=== PATIENT | male | born 1960 | race Caucasian/White ===

== ENCOUNTER 2019-09-11 12:52 | Emergency (ER) | payer MEDICAID ==
[~2019-09-11] VITALS: Ht 177.8 cm; Wt 131.8 kg
[~2019-09-11 12:52] MED LIST: HYDR25TA4 PO; LISI-600 PO; SIMV20TA5 PO
[2019-09-11 13:16] LABS: BASOPHILS # (AUTO) 0.1 X10'3 (0-0.2); BASOPHILS % (AUTO) 0.6 % (0-1); EOSINOPHILS # (AUTO) 0.3 X10'3 (0-0.9); EOSINOPHILS % (AUTO) 2.3 % (0-6); HEMATOCRIT 35.4 % (42.0-52.0); HEMOGLOBIN 11.7 g/dl (14.0-17.9); LYMPHOCYTES # (AUTO) 1.1 X10'3 (1.1-4.8); LYMPHOCYTES % (AUTO) 9.7 % (21-51); MEAN CORPUSCULAR HEMOGLOBIN 29.2 PG (27.0-31.0); MEAN CORPUSCULAR VOLUME 88.4 FL (78-98); MEAN PLATELET VOLUME 7.5 FL (7.4-10.4); MONOCYTES # (AUTO) 0.8 X10'3 (0-0.9); MONOCYTES % (AUTO) 6.9 % (2-12); NEUTROPHILS # (AUTO) 9.4 X10'3 (1.8-7.7); NEUTROPHILS % (AUTO) 80.5 % (42-75); PLATELET COUNT 233 X10'3 (140-440); RED BLOOD COUNT 4.01 X10'6 (4.70-6.10); RED CELL DISTRIBUTION WIDTH 15.2 % (11.5-14.5); WHITE BLOOD COUNT 11.7 X10'3 (4.5-11.0)
[2019-09-11 13:34] LABS: PARTIAL THROMBOPLASTIN TIME 27 SECONDS (22-32)
[2019-09-11 13:35] LABS: ALANINE AMINOTRANSFERASE 50 U/L (12-78); ALBUMIN 3.1 G/DL (3.4-5.0); ALBUMIN/GLOBULIN RATIO 0.8 (1.1-1.5); ALKALINE PHOSPHATASE 98 IU/L (46-116); ANION GAP 9 (8-16); ASPARTATE AMINO TRANSFERASE 25 U/L (10-37); BILIRUBIN,TOTAL 0.3 MG/DL (0.1-1.0); BLOOD UREA NITROGEN 12 MG/DL (7-18); BUN/CREATININE RATIO 11.9 (5.4-32.0); CALCIUM 7.9 MG/DL (8.5-10.1); CHLORIDE 108 MMOL/L (99-107); CREATININE 1.01 MG/DL (0.60-1.10); GLUCOSE 144 MG/DL (70-104); POTASSIUM 4.1 MMOL/L (3.5-5.1); SODIUM 142 MMOL/L (135-145); TOTAL CARBON DIOXIDE 24.9 MMOL/L (24-32); TOTAL PROTEIN 6.8 G/DL (6.4-8.2); eGFR 76 ML/MIN
[2019-09-11 14:24] LABS: CLARITY,URINE CLEAR (Clear); COLOR,URINE YELLOW (Yellow); GLUCOSE, URINE NEGATIVE (Neg); KETONES,URINE NEGATIVE (Neg); LEUKOCYTE ESTERASE ,URINE NEGATIVE (Neg); NITRITES, URINE NEGATIVE (Neg); OCCULT BLOOD,URINE TRACE-INTACT (Neg); PROTEIN,URINE NEGATIVE (Neg); UROBILINOGEN,URINE 0.2 E.U/dL (0.2-1.0)
[2019-09-11 14:26] LABS: UA COLLECTION TYPE CLN CATCH MIDSTREAM
[2019-09-11 14:34] LABS: URINE AMPHETAMINE SCREEN NEGATIVE (Neg); URINE BARBITUATE SCREEN NEGATIVE (Neg); URINE BENZODIAZEPINES SCREEN NEGATIVE (Neg); URINE CANNABINOID SCREEN NEGATIVE (Neg); URINE COCAINE SCREEN NEGATIVE (Neg); URINE METHADONE SCREEN NEGATIVE (Neg); URINE OPIATE SCREEN NEGATIVE (Neg); URINE PHENCYCLIDINE SCREEN NEGATIVE (Neg)
[2019-09-11 14:35] LABS: BACTERIA,URINE NONE SEEN /HPF (Neg); MUCUS STRANDS NONE SEEN /LPF (Neg); RBC,URINE 0-2 /HPF (0-2); SQUAMOUS EPITHELIAL CELL,UR FEW /LPF (FEW); WBC,URINE 0-4 /HPF (0-4)
[2019-09-11] MEDS ORDERED: iohexol 350MG/ML 100ml bottle IV ONE (14:37)
[2019-09-11] MEDS ORDERED: furosemide 10 MG/1 ML 10ml inj IV ONE (16:55)
[2019-09-11] MEDS ORDERED: FURO40TA4 PO (16:55)
[2019-09-11] MEDS ORDERED: ketorolac trometh. 30mg/ml inj. IV ONE (16:55)
--- NOTE | 2019-09-11 17:08 | NUR ---
patient received back in hallway 7.
[2019-09-11 17:31] VITALS: BP 189/96
== END 2019-09-11 17:33 | disposition home or self-care (01) ==
LOC: ER 12:53
DX: R60.0 Localized edema (principal); R06.02 Shortness of breath; E78.00 Pure hypercholesterolemia, unspecified; I10 Essential (primary) hypertension; Z56.0 Unemployment, unspecified; Z79.899 Other long term (current) drug therapy
CPT/HCPCS: 36415; 71045; 71275; 80053; 80305; 81001; 83880; 84484; 85025; 85610; 85730; 93005; 96374; 96375; 99284; J1885; J1940; Q9967

== ENCOUNTER 2019-12-17 16:20 | Inpatient (IN) | payer MEDICAID ==
[~2019-12-17] VITALS: Ht 176.5 cm; Wt 104.1 kg
[~2019-12-17 16:20] MED LIST changes: +FURO40TA4 PO; +SIMV-42 PO; -SIMV20TA5 PO
[2019-12-17 18:18] LABS: BASOPHILS # (AUTO) 0.1 X10'3 (0-0.2); EOSINOPHILS # (AUTO) 0.1 X10'3 (0-0.9); EOSINOPHILS % (AUTO) 1.5 % (0-6); HEMATOCRIT 39.6 % (42.0-52.0); HEMOGLOBIN 13.3 g/dl (14.0-17.9); LYMPHOCYTES # (AUTO) 1.7 X10'3 (1.1-4.8); LYMPHOCYTES % (AUTO) 16.4 % (21-51); MEAN CORPUSCULAR HEMOGLOBIN 28.8 PG (27.0-31.0); MEAN CORPUSCULAR HGB CONC 33.6 g/dL (33.0-36.5); MEAN CORPUSCULAR VOLUME 85.6 FL (78-98); MEAN PLATELET VOLUME 8.5 FL (7.4-10.4); MONOCYTES # (AUTO) 0.8 X10'3 (0-0.9); MONOCYTES % (AUTO) 8.1 % (2-12); NEUTROPHILS # (AUTO) 7.4 X10'3 (1.8-7.7); PLATELET COUNT 227 X10'3 (140-440); RED BLOOD COUNT 4.62 X10'6 (4.70-6.10); RED CELL DISTRIBUTION WIDTH 14.3 % (11.5-14.5); WHITE BLOOD COUNT 10.2 X10'3 (4.5-11.0)
[2019-12-17 18:34] LABS: ALANINE AMINOTRANSFERASE 28 U/L (12-78); ALBUMIN 3.8 G/DL (3.4-5.0); ALBUMIN/GLOBULIN RATIO 1.2 (1.1-1.5); ALKALINE PHOSPHATASE 94 IU/L (46-116); ANION GAP 9 (8-16); ASPARTATE AMINO TRANSFERASE 18 U/L (10-37); BILIRUBIN,TOTAL 0.3 MG/DL (0.1-1.0); BLOOD UREA NITROGEN 32 MG/DL (7-18); BUN/CREATININE RATIO 28.6 (5.4-32.0); CALCIUM 8.8 MG/DL (8.5-10.1); CHLORIDE 104 MMOL/L (99-107); CREATININE 1.12 MG/DL (0.60-1.10); GLUCOSE 95 MG/DL (70-104); POTASSIUM 4.6 MMOL/L (3.5-5.1); SODIUM 140 MMOL/L (135-145); TOTAL CARBON DIOXIDE 27.4 MMOL/L (24-32); TOTAL PROTEIN 7.1 G/DL (6.4-8.2); eGFR 67 ML/MIN
--- NOTE | 2019-12-17 19:25 | NUR ---
Spoke with Dr. Yi about the patient not having been seen and heart rate continues to be elevated.
--- NOTE | 2019-12-17 20:02 | NUR ---
Dr. Berrios is with the patient at this time.
[2019-12-17] MEDS ORDERED: diltiazem 30mg tablet PO ONE (20:10)
[2019-12-17] MEDS ORDERED: enoxaparin 100mg/ml syringe SUBCUT ONE ×2 (20:10→21:30)
[2019-12-17] MEDS ORDERED: diltiazem 5mg/ml 5ml inj. IV ONE (20:10)
[2019-12-17 20:45] LABS: PARTIAL THROMBOPLASTIN TIME 29 SECONDS (22-32)
[2019-12-17] MEDS ORDERED: normal saline 1000ML IV soln IVB ONE (20:45)
--- NOTE | 2019-12-17 21:39 | NUR ---
Lovenox injection given, Pharmacy number unable to be scanned.
[2019-12-17] MEDS ORDERED: magnesium 4gm in 100ml NS 100 ML IV PRN (22:40)
[2019-12-17] MEDS ORDERED: ondansetron/PF 4mg/2ml inj IV PRN (22:40)
[2019-12-17] MEDS ORDERED: magnesium hydroxide 30ml (MOM) UD suspension PO PRN (22:40)
[2019-12-17] MEDS ORDERED: mag hydrox/Alum hydrox/simeth 30ml oral suspension PO PRN (22:40)
[2019-12-17] MEDS ORDERED: magnesium Cl slow-release 64mg tablet PO PRN (22:40)
[2019-12-17] MEDS ORDERED: potassium CL 10mEq/100ml bag 100 ML IV PRN ×2 (22:40)
[2019-12-17] MEDS ORDERED: magnesium 2GM in 50ml NS 50 ML IV PRN (22:40)
[2019-12-17] MEDS ORDERED: acetaminophen 325mg tablet PO PRN (22:40)
[2019-12-17] MEDS ORDERED: potassium Cl 20 mEq SR tablet PO PRN ×2 (22:40)
[2019-12-17] MEDS ORDERED: diltiazem-NS 100mg/100ml 100 ML IV SCH (22:45)
--- NOTE | 2019-12-17 23:37 | NUR ---
Pt's cardizem drip held for the time being due to low blood pressure. BP 84/48 with Heart rate 87, afib. Dr. Joshua notified.
[2019-12-18] VITALS (7 sets, daily range): BP systolic 89–116; BP diastolic 55–77
--- NOTE | 2019-12-18 | NUR ---
Patient in room MED 315. I have received report from SANDRO GIBBONS and had the opportunity to ask questions and assume patient care.
[2019-12-18] MEDS ORDERED: digoxin 250mcg/ml 2ml ampule IV ONE ×3 (01:25→12:45)
[2019-12-18 06:08] LABS: BASOPHILS # (AUTO) 0.1 X10'3 (0-0.2); EOSINOPHILS # (AUTO) 0.2 X10'3 (0-0.9); EOSINOPHILS % (AUTO) 2.6 % (0-6); HEMATOCRIT 37.5 % (42.0-52.0); HEMOGLOBIN 12.8 g/dl (14.0-17.9); LYMPHOCYTES # (AUTO) 2.3 X10'3 (1.1-4.8); MEAN CORPUSCULAR HEMOGLOBIN 28.8 PG (27.0-31.0); MEAN CORPUSCULAR VOLUME 84.6 FL (78-98); MEAN PLATELET VOLUME 8.3 FL (7.4-10.4); MONOCYTES # (AUTO) 0.8 X10'3 (0-0.9); NEUTROPHILS # (AUTO) 4.3 X10'3 (1.8-7.7); NEUTROPHILS % (AUTO) 56.4 % (42-75); PLATELET COUNT 222 X10'3 (140-440); RED BLOOD COUNT 4.44 X10'6 (4.70-6.10); RED CELL DISTRIBUTION WIDTH 14.1 % (11.5-14.5); WHITE BLOOD COUNT 7.7 X10'3 (4.5-11.0)
--- NOTE | 2019-12-18 06:20 | NUR ---
Patient in room MED 315. I have received report from EDWIGE Avila and had the opportunity to ask questions and assume patient care.
[2019-12-18 06:23] LABS: ALANINE AMINOTRANSFERASE 29 U/L (12-78); ALBUMIN 3.1 G/DL (3.4-5.0); ALKALINE PHOSPHATASE 75 IU/L (46-116); ANION GAP 8 (8-16); ASPARTATE AMINO TRANSFERASE 16 U/L (10-37); BILIRUBIN,TOTAL 0.3 MG/DL (0.1-1.0); BLOOD UREA NITROGEN 25 MG/DL (7-18); BUN/CREATININE RATIO 28.4 (5.4-32.0); CALCIUM 8.3 MG/DL (8.5-10.1); CHLORIDE 109 MMOL/L (99-107); CREATININE 0.88 MG/DL (0.60-1.10); GLUCOSE 86 MG/DL (70-104); POTASSIUM 4.4 MMOL/L (3.5-5.1); SODIUM 142 MMOL/L (135-145); TOTAL CARBON DIOXIDE 24.9 MMOL/L (24-32); TOTAL PROTEIN 6.1 G/DL (6.4-8.2); eGFR 88 ML/MIN
[2019-12-18 06:28] LABS: CHOL/HDL RATIO 2.6 (0.00-4.99); CHOLESTEROL 97 MG/DL (0-200); HDL CHOLESTEROL 37 MG/DL (35-60); LDL CHOLESTEROL 52 MG/DL (50-100); MAGNESIUM 2.2 MG/DL (1.5-2.4); TRIGLYCERIDES 54 MG/DL (20-135)
--- NOTE | 2019-12-18 06:41 | NUR ---
Problems reprioritized. Patient report given, questions answered & plan of care reviewed with JANES GIBBONS.
[2019-12-18] MEDS ORDERED: lisinopril 20mg tablet PO SCH (08:00)
[2019-12-18] MEDS: K and/or MAG REPLACEMENT MC SCH ×2 (08:00→19:53)
[2019-12-18] MEDS: apixaban 5mg tablet PO SCH ×2 (08:45→19:55)
[2019-12-18] MEDS: furosemide 40mg tablet PO SCH (08:51)
[2019-12-18] MEDS: diltiazem 30mg tablet PO SCH ×2 (14:07→19:55)
--- NOTE | 2019-12-18 18:10 | NUR ---
Problems reprioritized. Patient report given, questions answered & plan of care reviewed with EDWIGE Avila.
--- NOTE | 2019-12-18 18:23 | NUR ---
Patient in room MED 315. I have received report from Carmelita GIBBONS and had the opportunity to ask questions and assume patient care.
[2019-12-18] MEDS: atorvastatin 10mg tablet PO SCH (20:20)
[2019-12-19 02:00] VITALS: BP 104/65
[2019-12-19] MEDS: diltiazem 30mg tablet PO SCH ×4 (02:00→21:16)
[2019-12-19 04:12] LABS: ALANINE AMINOTRANSFERASE 28 U/L (12-78); ALBUMIN 3.3 G/DL (3.4-5.0); ALKALINE PHOSPHATASE 79 IU/L (46-116); ANION GAP 8 (8-16); ASPARTATE AMINO TRANSFERASE 16 U/L (10-37); BILIRUBIN,TOTAL 0.3 MG/DL (0.1-1.0); BLOOD UREA NITROGEN 18 MG/DL (7-18); BUN/CREATININE RATIO 23.1 (5.4-32.0); CALCIUM 8.7 MG/DL (8.5-10.1); CHLORIDE 107 MMOL/L (99-107); CREATININE 0.78 MG/DL (0.60-1.10); GLUCOSE 93 MG/DL (70-104); MAGNESIUM 2.2 MG/DL (1.5-2.4); POTASSIUM 4.2 MMOL/L (3.5-5.1); SODIUM 141 MMOL/L (135-145); TOTAL CARBON DIOXIDE 25.9 MMOL/L (24-32); TOTAL PROTEIN 6.6 G/DL (6.4-8.2); eGFR > 90 ML/MIN
[2019-12-19 04:33] LABS: BASOPHILS # (AUTO) 0.1 X10'3 (0-0.2); BASOPHILS % (AUTO) 1.2 % (0-1); EOSINOPHILS # (AUTO) 0.2 X10'3 (0-0.9); EOSINOPHILS % (AUTO) 2.6 % (0-6); HEMATOCRIT 40.8 % (42.0-52.0); HEMOGLOBIN 13.8 g/dl (14.0-17.9); LYMPHOCYTES # (AUTO) 2.5 X10'3 (1.1-4.8); LYMPHOCYTES % (AUTO) 27.9 % (21-51); MEAN CORPUSCULAR HEMOGLOBIN 28.7 PG (27.0-31.0); MEAN CORPUSCULAR HGB CONC 33.7 g/dL (33.0-36.5); MEAN CORPUSCULAR VOLUME 85.1 FL (78-98); MEAN PLATELET VOLUME 8.8 FL (7.4-10.4); MONOCYTES # (AUTO) 0.8 X10'3 (0-0.9); MONOCYTES % (AUTO) 8.6 % (2-12); NEUTROPHILS # (AUTO) 5.4 X10'3 (1.8-7.7); NEUTROPHILS % (AUTO) 59.7 % (42-75); PLATELET COUNT 222 X10'3 (140-440); RED BLOOD COUNT 4.79 X10'6 (4.70-6.10); RED CELL DISTRIBUTION WIDTH 14.3 % (11.5-14.5)
[2019-12-19 06:00] VITALS: BP 99/75
--- NOTE | 2019-12-19 06:00 | NUR ---
Patient in room MED 315. I have received report from EDWIGE Avila and had the opportunity to ask questions and assume patient care.
--- NOTE | 2019-12-19 06:01 | NUR ---
Problems reprioritized. Patient report given, questions answered & plan of care reviewed with Eda GIBBONS.
[2019-12-19] MEDS: K and/or MAG REPLACEMENT MC SCH ×2 (08:00→20:00)
[2019-12-19] MEDS: apixaban 5mg tablet PO SCH ×2 (08:18→21:16)
[2019-12-19] MEDS: furosemide 40mg tablet PO SCH (08:19)
[2019-12-19] MEDS: digoxin 250mcg (0.25mg) tablet PO SCH (08:19)
[2019-12-19 10:00] VITALS: BP 105/56
[2019-12-19] MEDS ORDERED: pneumococcal 23-VAL P-sac vacc 25 mcg/0.5ml vial IMVAC ONE (10:00)
[2019-12-19] MEDS ORDERED: FLU VACC QS2019-20 36MOS UP/PF 60 MCG/0.5 ML SYRINGE IMVAC ONE ×2 (10:00→16:00)
--- NOTE | 2019-12-19 10:23 | NUR ---
HR 140S-160S PAGED DR. SPANN "RE: BRADY REES, IN 315. PT'S HR IS GOING UP TO 150S-160S WITH MINIMAL ACTIVITY. IN AFIB STILL. THANKS, REA GARZA [phone]"
--- NOTE | 2019-12-19 10:35 | NUR ---
PAGED DR. SPANN AGAIN ABOUT HR "RE; NEGRITA ABREU IN 315, PLEASE CALL TO ADVISE ABOUT HR. 130S-140S CONSISTENTLY. AFIB. THANK YOU, REA GARZA [phone]"
[2019-12-19] MEDS ORDERED: digoxin 250mcg/ml 2ml ampule IV ONE (10:40)
[2019-12-19 15:00] VITALS: BP 111/66
[2019-12-19 18:00] VITALS: BP 115/67
--- NOTE | 2019-12-19 18:00 | NUR ---
Patient in room MED 315. I have received report from Eda GIBBONS and had the opportunity to ask questions and assume patient care.
--- NOTE | 2019-12-19 18:00 | NUR ---
Problems reprioritized. Patient report given, questions answered & plan of care reviewed with EDWIGE Avila.
[2019-12-19] MEDS: atorvastatin 10mg tablet PO SCH (21:16)
[2019-12-19 22:00] VITALS: BP 114/68
[2019-12-20 02:00] VITALS: BP 111/59
[2019-12-20] MEDS: diltiazem 30mg tablet PO SCH ×2 (02:09→08:42)
[2019-12-20 02:53] LABS: ALANINE AMINOTRANSFERASE 30 U/L (12-78); ALBUMIN 3.4 G/DL (3.4-5.0); ALBUMIN/GLOBULIN RATIO 1.1 (1.1-1.5); ALKALINE PHOSPHATASE 81 IU/L (46-116); ANION GAP 7 (8-16); ASPARTATE AMINO TRANSFERASE 16 U/L (10-37); BILIRUBIN,TOTAL 0.2 MG/DL (0.1-1.0); BLOOD UREA NITROGEN 21 MG/DL (7-18); BUN/CREATININE RATIO 26.3 (5.4-32.0); CALCIUM 8.6 MG/DL (8.5-10.1); CHLORIDE 107 MMOL/L (99-107); GLUCOSE 90 MG/DL (70-104); POTASSIUM 4.4 MMOL/L (3.5-5.1); SODIUM 140 MMOL/L (135-145); TOTAL CARBON DIOXIDE 26.1 MMOL/L (24-32); TOTAL PROTEIN 6.6 G/DL (6.4-8.2); eGFR > 90 ML/MIN
[2019-12-20 02:58] LABS: BASOPHILS # (AUTO) 0.1 X10'3 (0-0.2); EOSINOPHILS # (AUTO) 0.2 X10'3 (0-0.9); HEMATOCRIT 40.8 % (42.0-52.0); HEMOGLOBIN 13.7 g/dl (14.0-17.9); LYMPHOCYTES # (AUTO) 2.7 X10'3 (1.1-4.8); LYMPHOCYTES % (AUTO) 24.1 % (21-51); MEAN CORPUSCULAR HEMOGLOBIN 28.5 PG (27.0-31.0); MEAN CORPUSCULAR HGB CONC 33.6 g/dL (33.0-36.5); MEAN CORPUSCULAR VOLUME 84.8 FL (78-98); MEAN PLATELET VOLUME 8.7 FL (7.4-10.4); MONOCYTES # (AUTO) 0.9 X10'3 (0-0.9); NEUTROPHILS # (AUTO) 7.3 X10'3 (1.8-7.7); NEUTROPHILS % (AUTO) 64.9 % (42-75); PLATELET COUNT 240 X10'3 (140-440); RED BLOOD COUNT 4.82 X10'6 (4.70-6.10); RED CELL DISTRIBUTION WIDTH 14.3 % (11.5-14.5); WHITE BLOOD COUNT 11.2 X10'3 (4.5-11.0)
[2019-12-20 06:00] VITALS: BP 115/66
--- NOTE | 2019-12-20 06:00 | NUR ---
Patient in room MED 315. I have received report from EDWIGE Avila and had the opportunity to ask questions and assume patient care.
--- NOTE | 2019-12-20 06:18 | NUR ---
Problems reprioritized. Patient report given, questions answered & plan of care reviewed with Eda. Addendum: 12/20/19 at 0618 by Suzan Guillaume RN Eda GIBBONS
[2019-12-20] MEDS: K and/or MAG REPLACEMENT MC SCH ×2 (08:00→19:40)
[2019-12-20] MEDS: digoxin 250mcg (0.25mg) tablet PO SCH (08:41)
[2019-12-20] MEDS: apixaban 5mg tablet PO SCH ×2 (08:42→20:16)
[2019-12-20] MEDS: furosemide 40mg tablet PO SCH (08:42)
[2019-12-20 11:00] VITALS: BP 128/73
[2019-12-20] MEDS ORDERED: diltiazem CD 180mg cap (once-daily) PO SCH ×2 (11:35→12:05)
[2019-12-20 14:00] VITALS: BP 128/73
--- NOTE | 2019-12-20 15:11 | NUR ---
Pt ambulated with walker for 2 laps while on tele box. bone density technician reported that heart rate went up to as high as 150's. RN provided teaching to pt to avoid strenuous activities after discharge to home
--- NOTE | 2019-12-20 18:00 | NUR ---
Problems reprioritized. Patient report given, questions answered & plan of care reviewed with EDWIGE Duncan.
--- NOTE | 2019-12-20 18:15 | NUR ---
Patient in room MED 315. I have received report from marvin GIBBONS and had the opportunity to ask questions and assume patient care.
[2019-12-20 18:30] VITALS: BP 122/68
[2019-12-20] MEDS: atorvastatin 10mg tablet PO SCH (20:16)
[2019-12-20 22:00] VITALS: BP 136/71
[2019-12-21 02:00] VITALS: BP 96/50
[2019-12-21 03:46] LABS: BASOPHILS # (AUTO) 0.1 X10'3 (0-0.2); BASOPHILS % (AUTO) 0.8 % (0-1); EOSINOPHILS # (AUTO) 0.3 X10'3 (0-0.9); HEMATOCRIT 39.7 % (42.0-52.0); HEMOGLOBIN 13.6 g/dl (14.0-17.9); LYMPHOCYTES # (AUTO) 2.5 X10'3 (1.1-4.8); LYMPHOCYTES % (AUTO) 22.6 % (21-51); MEAN CORPUSCULAR HEMOGLOBIN 28.7 PG (27.0-31.0); MEAN CORPUSCULAR HGB CONC 34.2 g/dL (33.0-36.5); MEAN PLATELET VOLUME 8.2 FL (7.4-10.4); MONOCYTES # (AUTO) 0.8 X10'3 (0-0.9); MONOCYTES % (AUTO) 7.8 % (2-12); NEUTROPHILS # (AUTO) 7.2 X10'3 (1.8-7.7); NEUTROPHILS % (AUTO) 65.8 % (42-75); PLATELET COUNT 216 X10'3 (140-440); RED BLOOD COUNT 4.73 X10'6 (4.70-6.10); RED CELL DISTRIBUTION WIDTH 13.9 % (11.5-14.5); WHITE BLOOD COUNT 10.9 X10'3 (4.5-11.0)
[2019-12-21 04:00] LABS: ALANINE AMINOTRANSFERASE 33 U/L (12-78); ALBUMIN 3.3 G/DL (3.4-5.0); ALKALINE PHOSPHATASE 90 IU/L (46-116); ANION GAP 6 (8-16); ASPARTATE AMINO TRANSFERASE 19 U/L (10-37); BILIRUBIN,TOTAL 0.3 MG/DL (0.1-1.0); BLOOD UREA NITROGEN 18 MG/DL (7-18); BUN/CREATININE RATIO 21.2 (5.4-32.0); CALCIUM 8.7 MG/DL (8.5-10.1); CHLORIDE 106 MMOL/L (99-107); CREATININE 0.85 MG/DL (0.60-1.10); GLUCOSE 103 MG/DL (70-104); POTASSIUM 4.2 MMOL/L (3.5-5.1); SODIUM 140 MMOL/L (135-145); TOTAL CARBON DIOXIDE 28.2 MMOL/L (24-32); TOTAL PROTEIN 6.5 G/DL (6.4-8.2); eGFR > 90 ML/MIN
[2019-12-21 06:00] VITALS: BP 117/66
--- NOTE | 2019-12-21 06:20 | NUR ---
Patient in room MED 315. I have received report from EDWIGE Shore and had the opportunity to ask questions and assume patient care.
[2019-12-21] MEDS: digoxin 250mcg (0.25mg) tablet PO SCH (07:17)
[2019-12-21] MEDS: furosemide 40mg tablet PO SCH (07:17)
[2019-12-21] MEDS: apixaban 5mg tablet PO SCH (07:17)
[2019-12-21] MEDS: K and/or MAG REPLACEMENT MC SCH (08:00)
[2019-12-21] MEDS ORDERED: APIX5TAB3 PO (09:49)
[2019-12-21] MEDS ORDERED: LAN0.25T PO (09:49)
[2019-12-21] MEDS ORDERED: DILT180C66 PO (09:49)
--- NOTE | 2019-12-21 10:41 | NUR ---
Discharge instructions given to patient both verbally and written. Patient reports that he has no further questions and he understands how to take his medication and to keep f/u appt with Dr. Coreas. All prescriptions called in to [facility] in [place]. Patient given his home meds that were stored in the pharmacy. Lisinopril 20 MG and Furosemide 40 mg. PIV removed, patient tolerated well, catheter intact. Patient will wait for a ride from his front maker lockstitch.
--- NOTE | 2019-12-21 11:44 | NUR ---
Patient leaving the hospital now. He is leaving in a w/c with the community product specialist. Gaudencio Astorga has been called for the patient. He states that he will wait in the lobby until gaudencio nereyda arrives. He could not leave earlier because his players club representative had his keys. At approx. 1145 a volunteer brought the patient's keys to him. He stated that these are the keys he was waiting for so he could get into his home and his vehicle.
== END 2019-12-21 11:49 | disposition home or self-care (01) | DRG 201 ==
LOC: ER 16:22 → ED HOLD 23:01 → EDBEDREQ 23:03 → MED 3N 12-18 00:37
PROVIDERS: ADMIT Family Medicine; ATTEND Family Medicine
PROC: 3E02340 Introduction of Influenza Vaccine into Muscle, Percutaneous Approach (ICD-10-PCS; principal; 2019-12-19)
PROC: 3E0234Z Introduction of Serum, Toxoid and Vaccine into Muscle, Percutaneous Approach (ICD-10-PCS; 2019-12-19)
DX: I48.91 Unspecified atrial fibrillation (principal); I13.0 Hypertensive heart and chronic kidney disease with heart failure and stage 1 through stage 4 chronic kidney disease, or unspecified chronic kidney disease; N18.3 Chronic kidney disease, stage 3 (moderate); I50.32 Chronic diastolic (congestive) heart failure; E78.00 Pure hypercholesterolemia, unspecified; E78.5 Hyperlipidemia, unspecified; M19.90 Unspecified osteoarthritis, unspecified site; Z80.0 Family history of malignant neoplasm of digestive organs; Z23 Encounter for immunization; Z79.899 Other long term (current) drug therapy
CPT/HCPCS: 36415; 71045; 80053; 80061; 83735; 83880; 84484; 85025; 85610; 85730; 87081; 90732; 93005; 93306; 96374; 99285; G0378; J1160; J1650; J3490; J7030; Q2037

== ENCOUNTER 2020-03-03 13:18 | Inpatient (IN) | payer MEDICAID ==
[~2020-03-03] VITALS: Ht 175.3 cm; Wt 90.9 kg
[~2020-03-03 13:18] MED LIST changes: +APIX5TAB3 PO; +DILT180C66 PO; -HYDR25TA4 PO; +LAN0.25T PO
[2020-03-03] MEDS ORDERED: normal saline 1000ml 1,000 ML IV ONE (13:25)
[2020-03-03] MEDS ORDERED: diltiazem 5mg/ml 5ml inj. IV ONE (13:25)
[2020-03-03] MEDS ORDERED: diltiazem-D5W 125mg/125ml 125 ML IV SCH (13:30)
[2020-03-03] MEDS ORDERED: diltiazem-NS 100mg/100ml 100 ML IV SCH (13:35)
--- NOTE | 2020-03-03 13:47 | NUR ---
Medications administered. Patient's HR improving. Patient denies any CP at this time. Dr. Steele informed and declined repeat EKG at this time.
[2020-03-03 14:11] LABS: BASOPHILS % (AUTO) 0.6 % (0-1); EOSINOPHILS # (AUTO) 0.1 X10'3 (0-0.9); EOSINOPHILS % (AUTO) 0.8 % (0-6); HEMATOCRIT 36.9 % (42.0-52.0); HEMOGLOBIN 11.9 g/dl (14.0-17.9); LYMPHOCYTES # (AUTO) 1.4 X10'3 (1.1-4.8); LYMPHOCYTES % (AUTO) 18.2 % (21-51); MEAN CORPUSCULAR HEMOGLOBIN 28.3 PG (27.0-31.0); MEAN CORPUSCULAR HGB CONC 32.4 g/dL (33.0-36.5); MEAN CORPUSCULAR VOLUME 87.4 FL (78-98); MONOCYTES # (AUTO) 0.7 X10'3 (0-0.9); MONOCYTES % (AUTO) 9.3 % (2-12); NEUTROPHILS # (AUTO) 5.4 X10'3 (1.8-7.7); NEUTROPHILS % (AUTO) 71.1 % (42-75); PLATELET COUNT 178 X10'3 (140-440); RED BLOOD COUNT 4.22 X10'6 (4.70-6.10); RED CELL DISTRIBUTION WIDTH 17.2 % (11.5-14.5); WHITE BLOOD COUNT 7.6 X10'3 (4.5-11.0)
[2020-03-03 14:26] LABS: ALANINE AMINOTRANSFERASE 27 U/L (12-78); ALBUMIN 3.2 G/DL (3.4-5.0); ALBUMIN/GLOBULIN RATIO 1.2 (1.1-1.5); ALKALINE PHOSPHATASE 64 IU/L (46-116); ANION GAP 8 (8-16); ASPARTATE AMINO TRANSFERASE 23 U/L (10-37); BILIRUBIN,TOTAL 0.3 MG/DL (0.1-1.0); BLOOD UREA NITROGEN 16 MG/DL (7-18); BUN/CREATININE RATIO 17.4 (5.4-32.0); CALCIUM 7.9 MG/DL (8.5-10.1); CHLORIDE 111 MMOL/L (99-107); CREATININE 0.92 MG/DL (0.60-1.10); GLUCOSE 83 MG/DL (70-104); MAGNESIUM 2.2 MG/DL (1.5-2.4); POTASSIUM 4.1 MMOL/L (3.5-5.1); SODIUM 145 MMOL/L (135-145); TOTAL CARBON DIOXIDE 26.2 MMOL/L (24-32); TOTAL PROTEIN 5.8 G/DL (6.4-8.2); eGFR 84 ML/MIN
[2020-03-03] MEDS ORDERED: [UNRECOGNIZED DRUG - CODE] PO (14:51)
[2020-03-03] MEDS ORDERED: DILT360C32 PO (14:51)
[2020-03-03] MEDS ORDERED: SIMV20TA PO (14:51)
[2020-03-03] MEDS ORDERED: FURO-149 PO (14:51)
[2020-03-03] MEDS ORDERED: LISI-600 PO (14:51)
[2020-03-03] MEDS ORDERED: APIX5TAB3 PO (14:51)
[2020-03-03] MEDS ORDERED: mag hydrox/Alum hydrox/simeth 30ml oral suspension PO PRN (15:00)
[2020-03-03] MEDS ORDERED: morphine 2 MG/ML inj. syringe IV PRN ×2 (15:00)
[2020-03-03] MEDS ORDERED: ondansetron/PF 4mg/2ml inj IV PRN (15:00)
[2020-03-03] MEDS ORDERED: HYDROcodone/acetaminophen 5mg/325mg tablet PO PRN (15:00)
[2020-03-03] MEDS ORDERED: acetaminophen 325mg tablet PO PRN ×2 (15:00)
--- NOTE | 2020-03-03 16:12 | NUR ---
Patient in room ED 9. I have received report from EDWIGE Palomo and had the opportunity to ask questions.
[2020-03-03 16:38] VITALS: BP 108/76
--- NOTE | 2020-03-03 16:38 | NUR ---
Patient arrived to floor. [place] to bed with 2 person standby assist. Oriented to room, call light within reach. 2 RN skin check complete, MRSA nasal swab complete. First set of vital signs complete: BP 108/76, HR 140 AFIB, R 15, 02 100 RA, Pain 0/10. All needs met at this time.
[2020-03-03 17:30] VITALS: BP 108/76
[2020-03-03] MEDS ORDERED: nitroGLYCERIN 0.4mg SUBLingual tab SL PRN (17:45)
[2020-03-03] MEDS ORDERED: aminophylline 250mg/10ml inj. IV PRN (17:45)
[2020-03-03] MEDS ORDERED: metoprolol tartrate 1mg/ml inj IV PRN (17:45)
[2020-03-03] MEDS ORDERED: regadenoson 0.4mg/5ml syringe IV ONE (17:45)
[2020-03-03] MEDS ORDERED: digoxin 250mcg/ml 2ml ampule IV ONE (17:45)
[2020-03-03 18:00] VITALS: BP 108/76
--- NOTE | 2020-03-03 18:00 | NUR ---
Patient in room PCU 3025. I have received report from Alyson GIBBONS and had the opportunity to ask questions and assume patient care.
--- NOTE | 2020-03-03 18:55 | NUR ---
Problems reprioritized. Patient report given, questions answered & plan of care reviewed with EDWIGE Kennedy. All patient needs met at this time. Addendum: 03/03/20 at 1855 by Alyson Carrington RN Problems reprioritized. Patient report given, questions answered & plan of care reviewed with EDWIGE Wright. All patient needs met at this time. Addendum: 03/03/20 at 1857 by Alyson Carrington RN Problems reprioritized. Patient report given, questions answered & plan of care reviewed with EDWIGE Kennedy. All patient needs met at this time.
[2020-03-03] MEDS: apixaban 5mg tablet PO SCH (19:21)
[2020-03-03 20:00] VITALS: BP 105/78
[2020-03-03] MEDS: atorvastatin 10mg tablet PO SCH (20:04)
[2020-03-03 22:00] VITALS: BP 103/64
[2020-03-04] VITALS (13 sets, daily range): BP systolic 100–129; BP diastolic 50–85
[2020-03-04 02:29] LABS: ALBUMIN 3.2 G/DL (3.4-5.0); ANION GAP 6 (8-16); CALCIUM 8.2 MG/DL (8.5-10.1); CHLORIDE 112 MMOL/L (99-107); CREATININE 0.84 MG/DL (0.60-1.10); GLUCOSE 82 MG/DL (70-104); SODIUM 144 MMOL/L (135-145); TOTAL CARBON DIOXIDE 25.9 MMOL/L (24-32); eGFR > 90 ML/MIN
[2020-03-04 02:34] LABS: BASOPHILS % (AUTO) 0.6 % (0-1); EOSINOPHILS # (AUTO) 0.2 X10'3 (0-0.9); EOSINOPHILS % (AUTO) 2.1 % (0-6); HEMATOCRIT 36.8 % (42.0-52.0); HEMOGLOBIN 12.2 g/dl (14.0-17.9); LYMPHOCYTES # (AUTO) 1.9 X10'3 (1.1-4.8); LYMPHOCYTES % (AUTO) 22.1 % (21-51); MEAN CORPUSCULAR HEMOGLOBIN 28.8 PG (27.0-31.0); MEAN CORPUSCULAR HGB CONC 33.1 g/dL (33.0-36.5); MEAN CORPUSCULAR VOLUME 87.1 FL (78-98); MEAN PLATELET VOLUME 10.2 FL (7.4-10.4); MONOCYTES # (AUTO) 0.8 X10'3 (0-0.9); MONOCYTES % (AUTO) 9.2 % (2-12); NEUTROPHILS # (AUTO) 5.7 X10'3 (1.8-7.7); PLATELET COUNT 183 X10'3 (140-440); RED BLOOD COUNT 4.23 X10'6 (4.70-6.10); WHITE BLOOD COUNT 8.7 X10'3 (4.5-11.0)
[2020-03-04 02:44] LABS: BLOOD UREA NITROGEN 14 MG/DL (7-18); BUN/CREATININE RATIO 16.7 (5.4-32.0)
--- NOTE | 2020-03-04 06:28 | NUR ---
Problems reprioritized. Patient report given, questions answered & plan of care reviewed with Kayla GIBBONS.
--- NOTE | 2020-03-04 06:41 | NUR ---
Patient in room PCU 3025. I have received report from Marcia GIBBONS and had the opportunity to ask questions and assume patient care.
[2020-03-04] MEDS: digoxin 250mcg (0.25mg) tablet PO SCH (07:25)
[2020-03-04] MEDS: apixaban 5mg tablet PO SCH ×2 (07:25→19:19)
[2020-03-04] MEDS: diltiazem 30mg tablet PO SCH ×3 (07:27→19:19)
[2020-03-04] MEDS ORDERED: diltiazem CD 180mg cap (once-daily) PO SCH (08:00)
[2020-03-04] MEDS ORDERED: furosemide 40mg tablet PO SCH (08:00)
--- NOTE | 2020-03-04 12:49 | NUR ---
PAGER ID: [phone] MESSAGE: [id number] Pablo Mason: FRANDY Stress test results in, No evidence of fixed or reversible myocardial ischemia and Mildly low left ventricular ejection fraction of 44%. Thanks Kayla [phone]
--- NOTE | 2020-03-04 14:05 | NUR ---
PAGER ID: [phone] MESSAGE: [phone] Pablo Gonzalez. Pt is getting anxious requesting to eat. Stress test results are available. Please advise. Adriane Dueñas RN #[id number]
--- NOTE | 2020-03-04 18:00 | NUR ---
Patient in room PCU 3025. I have received report from Kayla GIBBONS and had the opportunity to ask questions and assume patient care.
--- NOTE | 2020-03-04 18:26 | NUR ---
Problems reprioritized. Patient report given, questions answered & plan of care reviewed with Mracia GIBBONS.
[2020-03-04] MEDS: atorvastatin 10mg tablet PO SCH (19:19)
[2020-03-05] MEDS: diltiazem 30mg tablet PO SCH ×4 (01:21→19:23)
[2020-03-05 02:00] VITALS: BP_SYST 110; BP_SYST 119; BP_DIAS 66; BP_DIAS 76
[2020-03-05 05:46] LABS: BASOPHILS # (AUTO) 0.1 X10'3 (0-0.2); BASOPHILS % (AUTO) 0.7 % (0-1); EOSINOPHILS # (AUTO) 0.1 X10'3 (0-0.9); EOSINOPHILS % (AUTO) 1.4 % (0-6); HEMATOCRIT 41.1 % (42.0-52.0); HEMOGLOBIN 13.2 g/dl (14.0-17.9); LYMPHOCYTES # (AUTO) 1.8 X10'3 (1.1-4.8); LYMPHOCYTES % (AUTO) 19.4 % (21-51); MEAN CORPUSCULAR HEMOGLOBIN 28.2 PG (27.0-31.0); MEAN CORPUSCULAR HGB CONC 32.2 g/dL (33.0-36.5); MEAN CORPUSCULAR VOLUME 87.7 FL (78-98); MEAN PLATELET VOLUME 9.5 FL (7.4-10.4); MONOCYTES # (AUTO) 0.7 X10'3 (0-0.9); MONOCYTES % (AUTO) 8.1 % (2-12); NEUTROPHILS # (AUTO) 6.5 X10'3 (1.8-7.7); NEUTROPHILS % (AUTO) 70.4 % (42-75); PLATELET COUNT 185 X10'3 (140-440); RED BLOOD COUNT 4.69 X10'6 (4.70-6.10); RED CELL DISTRIBUTION WIDTH 17.3 % (11.5-14.5); WHITE BLOOD COUNT 9.3 X10'3 (4.5-11.0)
[2020-03-05 05:50] LABS: ALBUMIN 3.2 G/DL (3.4-5.0); ANION GAP 5 (8-16); BLOOD UREA NITROGEN 15 MG/DL (7-18); CALCIUM 8.6 MG/DL (8.5-10.1); CHLORIDE 110 MMOL/L (99-107); CREATININE 0.94 MG/DL (0.60-1.10); GLUCOSE 90 MG/DL (70-104); POTASSIUM 4.2 MMOL/L (3.5-5.1); SODIUM 143 MMOL/L (135-145); TOTAL CARBON DIOXIDE 27.7 MMOL/L (24-32); eGFR 82 ML/MIN
[2020-03-05 06:00] VITALS: BP 107/77
--- NOTE | 2020-03-05 06:13 | NUR ---
Problems reprioritized. Patient report given, questions answered & plan of care reviewed with Kayla GIBBONS.
--- NOTE | 2020-03-05 06:41 | NUR ---
Patient in room PCU 3025. I have received report from Marcia GIBBONS and had the opportunity to ask questions and assume patient care.
[2020-03-05] MEDS: digoxin 250mcg (0.25mg) tablet PO SCH (07:35)
[2020-03-05] MEDS: apixaban 5mg tablet PO SCH ×2 (07:35→19:24)
[2020-03-05] MEDS ORDERED: diltiazem 30mg tablet PO ONE (10:55)
[2020-03-05 11:00] VITALS: BP 113/65
[2020-03-05 15:00] VITALS: BP 129/75
[2020-03-05 18:30] VITALS: BP 111/63
--- NOTE | 2020-03-05 18:30 | NUR ---
Patient in room U 3025. I have received report from EDWIGE BERNARDO and had the opportunity to ask questions and assume patient care. PT ALERT AND ORIENTED, NO COMPLAINTS Addendum: 03/05/20 at 1849 by Abhi Bhakta RN Amended: Links added.
--- NOTE | 2020-03-05 18:41 | NUR ---
Problems reprioritized. Patient report given, questions answered & plan of care reviewed with Aminta Carroll.
[2020-03-05] MEDS: atorvastatin 10mg tablet PO SCH (19:24)
[2020-03-05] MEDS: magnesium hydroxide 30ml (MOM) UD suspension PO PRN (19:39)
[2020-03-05 22:30] VITALS: BP 106/70
[2020-03-06 02:35] VITALS: BP 116/72
[2020-03-06] MEDS: diltiazem 30mg tablet PO SCH ×4 (02:36→20:22)
[2020-03-06 05:47] LABS: BASOPHILS # (AUTO) 0.1 X10'3 (0-0.2); BASOPHILS % (AUTO) 0.7 % (0-1); EOSINOPHILS # (AUTO) 0.1 X10'3 (0-0.9); EOSINOPHILS % (AUTO) 1.4 % (0-6); HEMATOCRIT 39.8 % (42.0-52.0); LYMPHOCYTES % (AUTO) 19.5 % (21-51); MEAN CORPUSCULAR HEMOGLOBIN 28.6 PG (27.0-31.0); MEAN CORPUSCULAR HGB CONC 32.6 g/dL (33.0-36.5); MEAN CORPUSCULAR VOLUME 87.6 FL (78-98); MEAN PLATELET VOLUME 9.5 FL (7.4-10.4); MONOCYTES # (AUTO) 0.9 X10'3 (0-0.9); MONOCYTES % (AUTO) 8.2 % (2-12); NEUTROPHILS # (AUTO) 7.3 X10'3 (1.8-7.7); NEUTROPHILS % (AUTO) 70.2 % (42-75); PLATELET COUNT 183 X10'3 (140-440); RED BLOOD COUNT 4.55 X10'6 (4.70-6.10); RED CELL DISTRIBUTION WIDTH 16.8 % (11.5-14.5); WHITE BLOOD COUNT 10.4 X10'3 (4.5-11.0)
[2020-03-06 05:49] LABS: ALBUMIN 3.2 G/DL (3.4-5.0); ANION GAP 5 (8-16); BLOOD UREA NITROGEN 15 MG/DL (7-18); BUN/CREATININE RATIO 16.1 (5.4-32.0); CALCIUM 8.6 MG/DL (8.5-10.1); CHLORIDE 111 MMOL/L (99-107); CREATININE 0.93 MG/DL (0.60-1.10); GLUCOSE 89 MG/DL (70-104); SODIUM 145 MMOL/L (135-145); TOTAL CARBON DIOXIDE 28.9 MMOL/L (24-32); eGFR 83 ML/MIN
--- NOTE | 2020-03-06 06:43 | NUR ---
Problems reprioritized. Patient report given, questions answered & plan of care reviewed with EDWIGE Ndiaye. Addendum: 03/06/20 at 0643 by Abhi Bhakta RN Amended: Links added.
--- NOTE | 2020-03-06 07:10 | NUR ---
Patient in room PCU 3025. I have received report from EDWIGE Lemos and had the opportunity to ask questions and assume patient care.
[2020-03-06 07:23] VITALS: BP 115/71
[2020-03-06] MEDS: apixaban 5mg tablet PO SCH ×2 (09:06→20:23)
[2020-03-06] MEDS: digoxin 250mcg (0.25mg) tablet PO SCH (09:07)
[2020-03-06 11:00] VITALS: BP 110/71
[2020-03-06] MEDS: magnesium hydroxide 30ml (MOM) UD suspension PO PRN (14:57)
--- NOTE | 2020-03-06 18:56 | NUR ---
Problems reprioritized. Patient report given, questions answered & plan of care reviewed with EDWIGE Kam. Pt resting comfotably.Pt presents increased HR with exertion, Amiodarone dose increased by Dr Michaels. Will cont. to monitor.
[2020-03-06] MEDS: atorvastatin 10mg tablet PO SCH (20:22)
[2020-03-06 20:27] VITALS: BP 106/66
[2020-03-06 23:00] VITALS: BP 99/72
[2020-03-07 02:00] VITALS: BP 121/67
[2020-03-07] MEDS: diltiazem 30mg tablet PO SCH ×2 (02:11→07:35)
[2020-03-07 03:00] VITALS: BP 121/67
[2020-03-07 05:41] LABS: BASOPHILS # (AUTO) 0.1 X10'3 (0-0.2); BASOPHILS % (AUTO) 0.6 % (0-1); EOSINOPHILS # (AUTO) 0.2 X10'3 (0-0.9); EOSINOPHILS % (AUTO) 1.7 % (0-6); HEMATOCRIT 39.4 % (42.0-52.0); HEMOGLOBIN 12.9 g/dl (14.0-17.9); LYMPHOCYTES # (AUTO) 1.9 X10'3 (1.1-4.8); LYMPHOCYTES % (AUTO) 19.7 % (21-51); MEAN CORPUSCULAR HEMOGLOBIN 28.8 PG (27.0-31.0); MEAN CORPUSCULAR HGB CONC 32.7 g/dL (33.0-36.5); MEAN CORPUSCULAR VOLUME 87.9 FL (78-98); MEAN PLATELET VOLUME 9.3 FL (7.4-10.4); MONOCYTES # (AUTO) 0.9 X10'3 (0-0.9); MONOCYTES % (AUTO) 8.9 % (2-12); NEUTROPHILS # (AUTO) 6.7 X10'3 (1.8-7.7); NEUTROPHILS % (AUTO) 69.1 % (42-75); PLATELET COUNT 176 X10'3 (140-440); RED BLOOD COUNT 4.48 X10'6 (4.70-6.10); RED CELL DISTRIBUTION WIDTH 17.5 % (11.5-14.5); WHITE BLOOD COUNT 9.7 X10'3 (4.5-11.0)
[2020-03-07 05:48] LABS: ALBUMIN 3.2 G/DL (3.4-5.0); ANION GAP 7 (8-16); BLOOD UREA NITROGEN 15 MG/DL (7-18); BUN/CREATININE RATIO 17.2 (5.4-32.0); CALCIUM 8.5 MG/DL (8.5-10.1); CHLORIDE 109 MMOL/L (99-107); CREATININE 0.87 MG/DL (0.60-1.10); GLUCOSE 88 MG/DL (70-104); POTASSIUM 4.1 MMOL/L (3.5-5.1); SODIUM 143 MMOL/L (135-145); TOTAL CARBON DIOXIDE 26.7 MMOL/L (24-32); eGFR 90 ML/MIN
--- NOTE | 2020-03-07 06:20 | NUR ---
Patient in room U 3021T. I have received report from Eddy GIBBONS and had the opportunity to ask questions and assume patient care.
--- NOTE | 2020-03-07 06:20 | NUR ---
Problems reprioritized. Patient report given, questions answered & plan of care reviewed with LORRAINE GIBBONS . Addendum: 03/07/20 at 0620 by Abdiel Alberto RN Amended: Links added.
--- NOTE | 2020-03-07 06:56 | NUR ---
Patient in room PCU 3025. I have received report from Eddy GIBBONS and had the opportunity to ask questions and assume patient care.
[2020-03-07 07:00] VITALS: BP 104/66
[2020-03-07] MEDS: apixaban 5mg tablet PO SCH (07:35)
[2020-03-07] MEDS: digoxin 250mcg (0.25mg) tablet PO SCH (07:39)
[2020-03-07] MEDS ORDERED: DILT30TA5 PO (09:54)
[2020-03-07 11:00] VITALS: BP 111/56
--- NOTE | 2020-03-07 13:38 | NUR ---
Pt being discharged. Pt was educated on discharge material. Medications were reviewed and paper work finalized. Pt had no questions regarding medication, discharge instructions, or material that was reviewed. Education was taught and as well a follow up with primary doctor. Pt was escorted by aid by wheelchair with items in hand to the front of hospital where cab picked him up to take him home. Pt was stable and in no distress.
[2020-03-07] MEDS ORDERED: DOXY-1 PO (17:40)
== END 2020-03-07 13:17 | disposition home or self-care (01) | DRG 201 ==
LOC: ER 13:19 → ED HOLD 14:56 → PCU 3S 16:39
PROVIDERS: ADMIT Internal Medicine; ATTEND Internal Medicine
PROC: 4A02XM4 Measurement of Cardiac Total Activity, External Approach (ICD-10-PCS; principal; 2020-03-04)
DX: I48.0 Paroxysmal atrial fibrillation (principal); I11.0 Hypertensive heart disease with heart failure; I50.9 Heart failure, unspecified; E78.00 Pure hypercholesterolemia, unspecified; E78.5 Hyperlipidemia, unspecified; M19.90 Unspecified osteoarthritis, unspecified site; Z66 Do not resuscitate; Z79.01 Long term (current) use of anticoagulants; Z79.899 Other long term (current) drug therapy; Z80.8 Family history of malignant neoplasm of other organs or systems
CPT/HCPCS: 36415; 71045; 78452; 80048; 80053; 80162; 83735; 83880; 84484; 85025; 87081; 93005; 93017; 96365; 96376; 99285; A9500; G0378; J1160; J2785; J3490; J7030

== ENCOUNTER 2020-03-07 16:46 | Emergency (ER) | payer MEDICAID ==
[~2020-03-07] VITALS: Ht 175.3 cm; Wt 90.9 kg
[~2020-03-07 16:46] MED LIST changes: -DILT180C66 PO; +DILT30TA5 PO; +DILT360C32 PO; +FURO-149 PO; -FURO40TA4 PO; -LAN0.25T PO; -SIMV-42 PO; +SIMV20TA PO; +[UNRECOGNIZED DRUG - CODE] PO
[2020-03-07 17:05] LABS: CLARITY,URINE SLIGHTLY CLOUDY (Clear); COLOR,URINE YELLOW (Yellow); GLUCOSE, URINE NEGATIVE (Neg); KETONES,URINE 15 mg/dl (Neg); LEUKOCYTE ESTERASE ,URINE NEGATIVE (Neg); NITRITES, URINE NEGATIVE (Neg); OCCULT BLOOD,URINE NEGATIVE (Neg); PH,URINE 5.5 (4.8-8.0); PROTEIN,URINE TRACE mg/dl (Neg)
[2020-03-07 17:07] LABS: UA COLLECTION TYPE CLN CATCH MIDSTREAM
[2020-03-07 17:17] LABS: MUCUS STRANDS MANY /LPF (Neg)
[2020-03-07 17:18] LABS: SQUAMOUS EPITHELIAL CELL,UR FEW /LPF (FEW)
[2020-03-07 17:19] LABS: RBC,URINE 0-2 /HPF (0-2)
[2020-03-07 17:20] LABS: BACTERIA,URINE NONE SEEN /HPF (Neg)
[2020-03-07] MEDS ORDERED: DOXYCYCLINE 100MG CAPSULE PO STA (17:38)
[2020-03-07] MEDS ORDERED: DOXY-1 PO (17:40)
[2020-03-07 17:51] VITALS: BP 122/73
== END 2020-03-07 17:52 | disposition home or self-care (01) ==
LOC: ER 16:46
DX: N39.0 Urinary tract infection, site not specified (principal); I11.0 Hypertensive heart disease with heart failure; I50.9 Heart failure, unspecified; E78.00 Pure hypercholesterolemia, unspecified; M19.90 Unspecified osteoarthritis, unspecified site; Z56.0 Unemployment, unspecified; Z79.01 Long term (current) use of anticoagulants; Z79.899 Other long term (current) drug therapy
CPT/HCPCS: 81001; 87088; 99284

== ENCOUNTER 2020-03-12 10:55 | Emergency (ER) | payer MEDICAID ==
[~2020-03-12] VITALS: Ht 175.3 cm; Wt 89.1 kg
[~2020-03-12 10:55] MED LIST changes: -DILT360C32 PO; +DOXY-1 PO; -FURO-149 PO; -LISI-600 PO
[2020-03-12 10:56] VITALS: BP 143/55
== END 2020-03-12 11:11 | disposition home or self-care (01) ==
LOC: ER 10:55
DX: R41.3 Other amnesia (principal); I11.0 Hypertensive heart disease with heart failure; I50.9 Heart failure, unspecified; M19.90 Unspecified osteoarthritis, unspecified site; E78.00 Pure hypercholesterolemia, unspecified; Z56.0 Unemployment, unspecified; Z79.82 Long term (current) use of aspirin; Z79.899 Other long term (current) drug therapy
CPT/HCPCS: 99281

== ENCOUNTER 2020-03-15 12:42 | Emergency (ER) | payer MEDICAID ==
[~2020-03-15] VITALS: Ht 175.3 cm; Wt 93.7 kg
[2020-03-15 12:44] VITALS: BP 110/79
== END 2020-03-15 15:23 | disposition left against medical advice (07) ==
LOC: ER 12:43
DX: M54.2 Cervicalgia (principal); Z53.21 Procedure and treatment not carried out due to patient leaving prior to being seen by health care provider

== ENCOUNTER 2020-03-20 22:16 | Emergency (ER) | payer MEDICAID ==
[~2020-03-20] VITALS: Ht 175.3 cm; Wt 88.6 kg
[~2020-03-20 22:16] MED LIST changes: -DOXY-1 PO
--- NOTE | 2020-03-20 22:40 | NUR ---
Patient resting comfortably on gurney, reports 1/10 chest wall pain.
[2020-03-20 22:43] LABS: BASOPHILS # (AUTO) 0.1 X10'3 (0-0.2); EOSINOPHILS # (AUTO) 0.2 X10'3 (0-0.9); EOSINOPHILS % (AUTO) 2.4 % (0-6); HEMATOCRIT 36.7 % (42.0-52.0); HEMOGLOBIN 12.1 g/dl (14.0-17.9); LYMPHOCYTES # (AUTO) 1.9 X10'3 (1.1-4.8); LYMPHOCYTES % (AUTO) 20.2 % (21-51); MEAN CORPUSCULAR HGB CONC 32.9 g/dL (33.0-36.5); MEAN CORPUSCULAR VOLUME 88.1 FL (78-98); MEAN PLATELET VOLUME 8.9 FL (7.4-10.4); MONOCYTES # (AUTO) 0.8 X10'3 (0-0.9); MONOCYTES % (AUTO) 8.6 % (2-12); NEUTROPHILS # (AUTO) 6.4 X10'3 (1.8-7.7); NEUTROPHILS % (AUTO) 67.8 % (42-75); PLATELET COUNT 182 X10'3 (140-440); RED BLOOD COUNT 4.17 X10'6 (4.70-6.10); RED CELL DISTRIBUTION WIDTH 17.1 % (11.5-14.5); WHITE BLOOD COUNT 9.5 X10'3 (4.5-11.0)
[2020-03-20 22:59] LABS: ALANINE AMINOTRANSFERASE 31 U/L (12-78); ALBUMIN 3.3 G/DL (3.4-5.0); ALBUMIN/GLOBULIN RATIO 1.2 (1.1-1.5); ALKALINE PHOSPHATASE 86 IU/L (46-116); ANION GAP 5 (8-16); ASPARTATE AMINO TRANSFERASE 17 U/L (10-37); BILIRUBIN,TOTAL 0.2 MG/DL (0.1-1.0); BLOOD UREA NITROGEN 25 MG/DL (7-18); BUN/CREATININE RATIO 31.3 (5.4-32.0); CALCIUM 8.3 MG/DL (8.5-10.1); CHLORIDE 111 MMOL/L (99-107); GLUCOSE 94 MG/DL (70-104); MAGNESIUM 2.2 MG/DL (1.5-2.4); POTASSIUM 4.3 MMOL/L (3.5-5.1); SODIUM 145 MMOL/L (135-145); TOTAL CARBON DIOXIDE 28.8 MMOL/L (24-32); TOTAL PROTEIN 6.1 G/DL (6.4-8.2); eGFR > 90 ML/MIN
[2020-03-20 23:08] LABS: D-DIMER 0.33 MG/L FEU (0-0.50)
[2020-03-20] MEDS ORDERED: ALBU8.5H8 IH (23:32)
[2020-03-20 23:44] VITALS: BP 102/51
== END 2020-03-20 23:47 | disposition home or self-care (01) ==
LOC: ER 22:16
DX: R06.00 Dyspnea, unspecified (principal); I50.9 Heart failure, unspecified; E78.00 Pure hypercholesterolemia, unspecified; I11.0 Hypertensive heart disease with heart failure; M19.90 Unspecified osteoarthritis, unspecified site; R07.89 Other chest pain; R09.89 Other specified symptoms and signs involving the circulatory and respiratory systems; R05 Cough; Z56.0 Unemployment, unspecified; Z60.2 Problems related to living alone; Z59.0 Homelessness; Z79.01 Long term (current) use of anticoagulants; Z79.899 Other long term (current) drug therapy
CPT/HCPCS: 36415; 71045; 80053; 83735; 83880; 84484; 85025; 85379; 85610; 93005; 99285

== ENCOUNTER 2020-04-04 21:48 | Emergency (ER) | payer MEDICAID ==
[~2020-04-04] VITALS: Ht 175.3 cm; Wt 86.3 kg
[~2020-04-04 21:48] MED LIST changes: +ALBU8.5H8 IH
[2020-04-04 22:19] LABS: BASOPHILS # (AUTO) 0.1 X10'3 (0-0.2); BASOPHILS % (AUTO) 0.9 % (0-1); EOSINOPHILS # (AUTO) 0.2 X10'3 (0-0.9); EOSINOPHILS % (AUTO) 2.8 % (0-6); HEMATOCRIT 39.8 % (42.0-52.0); HEMOGLOBIN 12.8 g/dl (14.0-17.9); LYMPHOCYTES # (AUTO) 2.1 X10'3 (1.1-4.8); LYMPHOCYTES % (AUTO) 23.9 % (21-51); MEAN CORPUSCULAR HEMOGLOBIN 28.9 PG (27.0-31.0); MEAN CORPUSCULAR HGB CONC 32.3 g/dL (33.0-36.5); MEAN CORPUSCULAR VOLUME 89.4 FL (78-98); MONOCYTES # (AUTO) 0.7 X10'3 (0-0.9); MONOCYTES % (AUTO) 8.1 % (2-12); NEUTROPHILS # (AUTO) 5.6 X10'3 (1.8-7.7); NEUTROPHILS % (AUTO) 64.3 % (42-75); PLATELET COUNT 163 X10'3 (140-440); RED BLOOD COUNT 4.45 X10'6 (4.70-6.10); RED CELL DISTRIBUTION WIDTH 15.6 % (11.5-14.5); WHITE BLOOD COUNT 8.7 X10'3 (4.5-11.0)
[2020-04-04 22:34] LABS: ALANINE AMINOTRANSFERASE 25 U/L (12-78); ALBUMIN 3.5 G/DL (3.4-5.0); ALBUMIN/GLOBULIN RATIO 1.3 (1.1-1.5); ALKALINE PHOSPHATASE 77 IU/L (46-116); ANION GAP 7 (8-16); ASPARTATE AMINO TRANSFERASE 16 U/L (10-37); BILIRUBIN,TOTAL 0.3 MG/DL (0.1-1.0); BLOOD UREA NITROGEN 20 MG/DL (7-18); BUN/CREATININE RATIO 21.5 (5.4-32.0); CALCIUM 8.4 MG/DL (8.5-10.1); CHLORIDE 109 MMOL/L (99-107); CREATININE 0.93 MG/DL (0.60-1.10); GLUCOSE 97 MG/DL (70-104); POTASSIUM 4.1 MMOL/L (3.5-5.1); SODIUM 144 MMOL/L (135-145); TOTAL CARBON DIOXIDE 27.7 MMOL/L (24-32); TOTAL PROTEIN 6.2 G/DL (6.4-8.2); eGFR 83 ML/MIN
[2020-04-04] MEDS ORDERED: ALBU8.5H8 INH (22:47)
[2020-04-04 23:07] VITALS: BP 122/73
== END 2020-04-04 23:10 | disposition home or self-care (01) ==
LOC: ER 21:48
DX: J40 Bronchitis, not specified as acute or chronic (principal); I11.0 Hypertensive heart disease with heart failure; I50.9 Heart failure, unspecified; E78.00 Pure hypercholesterolemia, unspecified; M19.90 Unspecified osteoarthritis, unspecified site; Z87.01 Personal history of pneumonia (recurrent); Z59.0 Homelessness; Z56.0 Unemployment, unspecified; Z79.899 Other long term (current) drug therapy
CPT/HCPCS: 36415; 71045; 80053; 83880; 84484; 85025; 93005; 99285

== ENCOUNTER 2020-04-19 04:06 | Inpatient (IN) | payer MEDICAID ==
[~2020-04-19] VITALS: Ht 175.3 cm; Wt 83.8 kg
[~2020-04-19 04:06] MED LIST changes: +ALBU8.5H8 INH
[2020-04-19] MEDS ORDERED: normal saline 1000ml 1,000 ML IV ONE (04:32)
[2020-04-19] MEDS ORDERED: diltiazem 5mg/ml 5ml inj. IV ONE (04:35)
[2020-04-19] MEDS ORDERED: normal saline 1000ML IV soln IVB ONE (04:35)
[2020-04-19 04:42] LABS: BASOPHILS # (AUTO) 0.1 X10'3 (0-0.2); BASOPHILS % (AUTO) 0.7 % (0-1); EOSINOPHILS # (AUTO) 0.2 X10'3 (0-0.9); EOSINOPHILS % (AUTO) 1.6 % (0-6); HEMATOCRIT 45.2 % (42.0-52.0); HEMOGLOBIN 14.7 g/dl (14.0-17.9); LYMPHOCYTES # (AUTO) 2.1 X10'3 (1.1-4.8); LYMPHOCYTES % (AUTO) 17.6 % (21-51); MEAN CORPUSCULAR HEMOGLOBIN 28.9 PG (27.0-31.0); MEAN CORPUSCULAR HGB CONC 32.5 g/dL (33.0-36.5); MEAN CORPUSCULAR VOLUME 88.7 FL (78-98); MEAN PLATELET VOLUME 11.2 FL (7.4-10.4); MONOCYTES # (AUTO) 0.8 X10'3 (0-0.9); NEUTROPHILS # (AUTO) 8.6 X10'3 (1.8-7.7); NEUTROPHILS % (AUTO) 73.1 % (42-75); PLATELET COUNT 129 X10'3 (140-440); RED CELL DISTRIBUTION WIDTH 15.4 % (11.5-14.5); WHITE BLOOD COUNT 11.8 X10'3 (4.5-11.0)
[2020-04-19 04:56] LABS: PARTIAL THROMBOPLASTIN TIME 23 SECONDS (22-32)
[2020-04-19 05:00] LABS: ALANINE AMINOTRANSFERASE 48 U/L (12-78); ALBUMIN 3.7 G/DL (3.4-5.0); ALBUMIN/GLOBULIN RATIO 1.2 (1.1-1.5); ALKALINE PHOSPHATASE 77 IU/L (46-116); ANION GAP 9 (8-16); ASPARTATE AMINO TRANSFERASE 34 U/L (10-37); BILIRUBIN,TOTAL 0.3 MG/DL (0.1-1.0); BLOOD UREA NITROGEN 30 MG/DL (7-18); BUN/CREATININE RATIO 22.9 (5.4-32.0); CHLORIDE 109 MMOL/L (99-107); CREATININE 1.31 MG/DL (0.60-1.10); GLUCOSE 87 MG/DL (70-104); POTASSIUM 4.4 MMOL/L (3.5-5.1); SODIUM 146 MMOL/L (135-145); TOTAL CARBON DIOXIDE 28.2 MMOL/L (24-32); TOTAL PROTEIN 6.8 G/DL (6.4-8.2); eGFR 56 ML/MIN
[2020-04-19] MEDS ORDERED: digoxin 250mcg/ml 2ml ampule IV ONE (05:05)
[2020-04-19 05:06] LABS: ETHANOL < 0.010 GM/DL (0.0-0.010); MAGNESIUM 2.1 MG/DL (1.5-2.4)
[2020-04-19 05:35] LABS: CLARITY,URINE SLIGHTLY CLOUDY (Clear); COLOR,URINE YELLOW (Yellow); GLUCOSE, URINE NEGATIVE (Neg); KETONES,URINE NEGATIVE (Neg); LEUKOCYTE ESTERASE ,URINE NEGATIVE (Neg); NITRITES, URINE NEGATIVE (Neg); OCCULT BLOOD,URINE NEGATIVE (Neg); PROTEIN,URINE TRACE mg/dl (Neg)
[2020-04-19 05:40] LABS: UA COLLECTION TYPE URINAL; URINE AMPHETAMINE SCREEN NEGATIVE (Neg); URINE BARBITUATE SCREEN NEGATIVE (Neg); URINE BENZODIAZEPINES SCREEN NEGATIVE (Neg); URINE CANNABINOID SCREEN NEGATIVE (Neg); URINE COCAINE SCREEN NEGATIVE (Neg); URINE METHADONE SCREEN NEGATIVE (Neg); URINE OPIATE SCREEN NEGATIVE (Neg); URINE PHENCYCLIDINE SCREEN NEGATIVE (Neg)
[2020-04-19 05:47] LABS: HYALINE CASTS >30 /LPF (NEGATIVE)
[2020-04-19 05:48] LABS: MUCUS STRANDS MANY /LPF (Neg); SQUAMOUS EPITHELIAL CELL,UR MODERATE /LPF (FEW)
[2020-04-19 05:49] LABS: BACTERIA,URINE 1+ /HPF (Neg); CAL OXALATE CRYSTALS FEW /HPF (NEGATIVE); RBC,URINE 0-2 /HPF (0-2); WBC,URINE 0-4 /HPF (0-4)
[2020-04-19] MEDS ORDERED: magnesium 4gm in 100ml NS 100 ML IV PRN (06:10)
[2020-04-19] MEDS ORDERED: ondansetron/PF 4mg/2ml inj IV PRN (06:10)
[2020-04-19] MEDS ORDERED: HYDROcodone/acetaminophen 5mg/325mg tablet PO PRN (06:10)
[2020-04-19] MEDS ORDERED: potassium Cl 20 mEq SR tablet PO PRN ×2 (06:10)
[2020-04-19] MEDS ORDERED: magnesium Cl slow-release 64mg tablet PO PRN (06:10)
[2020-04-19] MEDS ORDERED: magnesium 2GM in 50ml NS 50 ML IV PRN (06:10)
[2020-04-19] MEDS ORDERED: acetaminophen 325mg tablet PO PRN (06:10)
[2020-04-19] MEDS ORDERED: potassium CL 10mEq/100ml bag 100 ML IV PRN ×2 (06:10)
[2020-04-19] MEDS: normal saline 1000ml 1,000 ML IV SCH ×2 (06:32→20:37)
--- NOTE | 2020-04-19 06:47 | NUR ---
RESTING IN POC, VSS, WAITING ROOM UPSTAIRS
[2020-04-19] MEDS: K and/or MAG REPLACEMENT MC SCH ×2 (08:22→20:00)
[2020-04-19] MEDS: docusate sod 100mg capsule PO SCH ×2 (08:29→20:21)
[2020-04-19] MEDS: apixaban 5mg tablet PO SCH ×2 (08:29→20:21)
[2020-04-19] MEDS: diltiazem 30mg tablet PO SCH ×3 (08:29→20:00)
--- NOTE | 2020-04-19 08:48 | NUR ---
Received report from EDWIGE Ibarra in the ED. I am told that the patient came in reporting L chest wall pain with the lifting of his L arm. I was told that the patient went to [facility] days ago with similar symptoms and had a full work up diagnosing him with A-fib RVR and was discharged with a follow up appt and prescriptions but he failed to pick them up. He is admitted for observation by Dr. Schuster with orders to complete troponin series. He is not on a drip but was given Cardizem 5mg IVP and his HR was as high as 130s but now continues to be in A-fib but HR in 80s-90s. Will await patient arrival to the floor.
--- NOTE | 2020-04-19 10:10 | NUR ---
Patient arrived to the floor. He ambulated from the rney to the room. I placed him on the mobile bedside monitor. Vitals are taken and are stable. Assessment completed and DART done. Assumed care of patient.
[2020-04-19 10:15] VITALS: BP 108/59
--- NOTE | 2020-04-19 10:25 | NUR ---
During DART, patient reported to me that he is hearing voices. I began to question him and assess him further with what these voices were telling him. He stated that the voices are telling him to kill brown/black people. He also has an odd affect. I reported this to the Charge nurse, EDWIGE Naik and I spoke with outreach and education social worker. I am told that he will be evaluated.
--- NOTE | 2020-04-19 10:45 | NUR ---
Daysi, The social work assistant reported to me that she agreed that the patient is off and that he is perhaps having some delusions and hallucinations. 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 She states she unsure if it is from the drug use but recommends a sitter. Dr. Michaels gave order to put a sitter with the patient.
[2020-04-19 11:00] VITALS: BP 96/66
--- NOTE | 2020-04-19 11:48 | NUR ---
PAGER ID: [phone] MESSAGE: Dr. Michaels, pt Ashlyn Mason on PCU, moved to 23b,FYI He is having 1-2 second pauses on the monitor. Abdi Melgar RN [phone]
[2020-04-19 15:00] VITALS: BP 90/63
[2020-04-19] MEDS ORDERED: SIMV-42 PO (15:29)
[2020-04-19] MEDS ORDERED: DILT90TA2 PO (15:29)
[2020-04-19] MEDS ORDERED: ALBU17AE26 PO (15:29)
--- NOTE | 2020-04-19 16:07 | NUR ---
Did not administer 1400 dose of Cardizem due to low blood pressures. Patient HR has also remained stable in 70s to low 80s. His Blood pressures have been in the 90s systolic with maps being 61 to 63. With repeat Blood Pressures his MAP increases and is stable >65%.
--- NOTE | 2020-04-19 16:34 | NUR ---
PAGER ID: [phone] MESSAGE: Dr. Michaels, per your request: pt Marlon, 23B on PCU continues to have 1-2 second pauses on rhythm strips. He is also hypotensive with low map at times. Advise if new orders. Thank you, Abdi Melgar RN PCU [id number]
[2020-04-19 18:00] VITALS: BP 107/63
--- NOTE | 2020-04-19 18:33 | NUR ---
Problems reprioritized. Patient report given, questions answered & plan of care reviewed with EDWIGE Bird.
--- NOTE | 2020-04-19 18:37 | NUR ---
Patient in room PCU 3023. I have received report from Carmelita GIBBONS and had the opportunity to ask questions and assume patient care.
[2020-04-19] MEDS: atorvastatin 10mg tablet PO SCH (20:21)
[2020-04-19] MEDS: risperiDONE 0.5mg tablet PO SCH (20:22)
[2020-04-19 22:00] VITALS: BP 89/60
[2020-04-20 02:00] VITALS: BP 111/71
[2020-04-20] MEDS: diltiazem 30mg tablet PO SCH ×4 (02:16→20:00)
[2020-04-20 05:54] LABS: BASOPHILS # (AUTO) 0.1 X10'3 (0-0.2); BASOPHILS % (AUTO) 0.7 % (0-1); EOSINOPHILS # (AUTO) 0.4 X10'3 (0-0.9); EOSINOPHILS % (AUTO) 4.2 % (0-6); HEMATOCRIT 42.3 % (42.0-52.0); HEMOGLOBIN 13.6 g/dl (14.0-17.9); LYMPHOCYTES # (AUTO) 2.4 X10'3 (1.1-4.8); LYMPHOCYTES % (AUTO) 27.9 % (21-51); MEAN CORPUSCULAR HEMOGLOBIN 28.6 PG (27.0-31.0); MEAN CORPUSCULAR HGB CONC 32.2 g/dL (33.0-36.5); MEAN PLATELET VOLUME 10.3 FL (7.4-10.4); MONOCYTES # (AUTO) 0.6 X10'3 (0-0.9); MONOCYTES % (AUTO) 6.7 % (2-12); NEUTROPHILS # (AUTO) 5.3 X10'3 (1.8-7.7); NEUTROPHILS % (AUTO) 60.5 % (42-75); PLATELET COUNT 129 X10'3 (140-440); RED BLOOD COUNT 4.76 X10'6 (4.70-6.10); RED CELL DISTRIBUTION WIDTH 15.5 % (11.5-14.5); WHITE BLOOD COUNT 8.7 X10'3 (4.5-11.0)
[2020-04-20 06:00] VITALS: BP 89/63
[2020-04-20 06:06] LABS: ANION GAP 6 (8-16); BLOOD UREA NITROGEN 23 MG/DL (7-18); CALCIUM 8.3 MG/DL (8.5-10.1); CHLORIDE 110 MMOL/L (99-107); CHOL/HDL RATIO 3.4 (0.00-4.99); CHOLESTEROL 120 MG/DL (0-200); CREATININE 0.92 MG/DL (0.60-1.10); GLUCOSE 80 MG/DL (70-104); HDL CHOLESTEROL 35 MG/DL (35-60); LDL CHOLESTEROL 72 MG/DL (50-100); MAGNESIUM 2.1 MG/DL (1.5-2.4); POTASSIUM 4.4 MMOL/L (3.5-5.1); SODIUM 143 MMOL/L (135-145); TOTAL CARBON DIOXIDE 27.5 MMOL/L (24-32); TRIGLYCERIDES 54 MG/DL (20-135); eGFR 84 ML/MIN
--- NOTE | 2020-04-20 07:01 | NUR ---
Problems reprioritized. Patient report given, questions answered & plan of care reviewed with Adriane GIBBONS.
--- NOTE | 2020-04-20 07:05 | NUR ---
Patient in room PCU 3023. I have received report from EDWIGE Bird and had the opportunity to ask questions and assume patient care.
[2020-04-20] MEDS: K and/or MAG REPLACEMENT MC SCH ×2 (08:00→20:00)
[2020-04-20] MEDS: docusate sod 100mg capsule PO SCH ×2 (08:36→20:10)
[2020-04-20] MEDS: apixaban 5mg tablet PO SCH ×2 (08:36→20:10)
[2020-04-20 11:00] VITALS: BP 95/57
[2020-04-20 15:00] VITALS: BP 89/61
--- NOTE | 2020-04-20 15:01 | NUR ---
Paged Dr. Michaels: "PAGER ID: [phone] MESSAGE: [id number]: several doses of Diltiazem held due to decreased blood pressure (80s/60s). HR 70-80bpm. Adjust dose? Thanks. Adriane Sugey [phone]"
[2020-04-20 18:00] VITALS: BP 94/61
--- NOTE | 2020-04-20 18:20 | NUR ---
Problems reprioritized. Patient report given, questions answered & plan of care reviewed with EDWIGE Wright.
--- NOTE | 2020-04-20 18:25 | NUR ---
Patient in room PCU 3023. I have received report from EDWIGE mcdonald and had the opportunity to ask questions and assume patient care.
[2020-04-20] MEDS: atorvastatin 10mg tablet PO SCH (20:10)
[2020-04-20] MEDS: risperiDONE 0.5mg tablet PO SCH (20:10)
--- NOTE | 2020-04-20 20:16 | NUR ---
Diltiazem was held for SBP 93. Parameters are to hold Diltiazem for BP <95 and patient has been trending low BPs since this morning per handoff report.
[2020-04-20 22:00] VITALS: BP 106/52
[2020-04-20] MEDS: normal saline 1000ml 1,000 ML IV SCH (22:08)
[2020-04-21] VITALS (7 sets, daily range): BP systolic 85–109; BP diastolic 54–83
[2020-04-21] MEDS: diltiazem 30mg tablet PO SCH ×4 (02:59→20:23)
--- NOTE | 2020-04-21 05:47 | NUR ---
orientee documentation: I have reviewed and agree with all interventions, assessments performed and documented by EDWIGE Ramirez. Student Medication Administration: For this medication-pass during this shift, all medication were reviewed, dispensed, administered and documented per hospital policy by Ashley Dillon RN.
[2020-04-21 05:53] LABS: BASOPHILS # (AUTO) 0.1 X10'3 (0-0.2); BASOPHILS % (AUTO) 0.8 % (0-1); EOSINOPHILS # (AUTO) 0.4 X10'3 (0-0.9); EOSINOPHILS % (AUTO) 3.9 % (0-6); HEMATOCRIT 42.6 % (42.0-52.0); HEMOGLOBIN 14.1 g/dl (14.0-17.9); LYMPHOCYTES # (AUTO) 2.2 X10'3 (1.1-4.8); MEAN CORPUSCULAR HEMOGLOBIN 29.3 PG (27.0-31.0); MEAN CORPUSCULAR VOLUME 88.6 FL (78-98); MEAN PLATELET VOLUME 9.9 FL (7.4-10.4); MONOCYTES # (AUTO) 0.7 X10'3 (0-0.9); MONOCYTES % (AUTO) 7.3 % (2-12); NEUTROPHILS # (AUTO) 5.8 X10'3 (1.8-7.7); PLATELET COUNT 144 X10'3 (140-440); RED BLOOD COUNT 4.81 X10'6 (4.70-6.10); RED CELL DISTRIBUTION WIDTH 15.7 % (11.5-14.5)
--- NOTE | 2020-04-21 06:00 | NUR ---
Problems reprioritized. Patient report given, questions answered & plan of care reviewed with Armand[].
[2020-04-21 06:01] LABS: ALBUMIN 3.2 G/DL (3.4-5.0); ANION GAP 5 (8-16); BLOOD UREA NITROGEN 17 MG/DL (7-18); CALCIUM 8.7 MG/DL (8.5-10.1); CHLORIDE 109 MMOL/L (99-107); CREATININE 0.85 MG/DL (0.60-1.10); GLUCOSE 87 MG/DL (70-104); MAGNESIUM 2.1 MG/DL (1.5-2.4); POTASSIUM 4.3 MMOL/L (3.5-5.1); SODIUM 142 MMOL/L (135-145); TOTAL CARBON DIOXIDE 27.9 MMOL/L (24-32); eGFR > 90 ML/MIN
--- NOTE | 2020-04-21 06:20 | NUR ---
Patient in room PCU 3023. I have received report from Adriana GIBBONS, and had the opportunity to ask questions and assume patient care
[2020-04-21] MEDS: apixaban 5mg tablet PO SCH ×2 (07:24→20:23)
[2020-04-21] MEDS: docusate sod 100mg capsule PO SCH ×2 (07:25→20:23)
[2020-04-21] MEDS: K and/or MAG REPLACEMENT MC SCH ×2 (08:00→20:00)
--- NOTE | 2020-04-21 16:48 | NUR ---
received report from Anh GIBBONS on tele.
--- NOTE | 2020-04-21 16:50 | NUR ---
Orientee documentation: I have reviewed and agree with all interventions, assessments performed and documented by Anh GIBBONS.
--- NOTE | 2020-04-21 16:50 | NUR ---
Patient transferred from [facility] [id number] to [facility] 4017. I gave report to Marlene CONKLIN and had the opportunity for questions to be asked. Patent transferred via wheelchair, [facility] patient's belongings, no skin issues at time of transfer, Sitter in room. Addendum: 04/21/20 at 1743 by Anh Victoria RN pt transferred to 7420. Medications were also sent with patient.
[2020-04-21] MEDS: normal saline 1000ml 1,000 ML IV SCH (18:08)
--- NOTE | 2020-04-21 18:28 | NUR ---
Patient in room ORTHO 4020. I have received report from EDWIGE Rosario and had the opportunity to ask questions and assume patient care.
[2020-04-21] MEDS: risperiDONE 0.5mg tablet PO SCH (20:23)
[2020-04-21] MEDS: atorvastatin 10mg tablet PO SCH (20:23)
[2020-04-22] MEDS: diltiazem 30mg tablet PO SCH ×4 (02:00→21:14)
[2020-04-22 02:01] VITALS: BP 94/65
[2020-04-22 06:00] VITALS: BP 100/57
--- NOTE | 2020-04-22 06:29 | NUR ---
Problems reprioritized. Patient report given, questions answered & plan of care reviewed with EDWIGE Rosario.
[2020-04-22 07:27] LABS: BASOPHILS # (AUTO) 0.1 X10'3 (0-0.2); BASOPHILS % (AUTO) 0.8 % (0-1); EOSINOPHILS # (AUTO) 0.3 X10'3 (0-0.9); EOSINOPHILS % (AUTO) 4.5 % (0-6); HEMATOCRIT 41.5 % (42.0-52.0); HEMOGLOBIN 13.7 g/dl (14.0-17.9); LYMPHOCYTES # (AUTO) 1.9 X10'3 (1.1-4.8); LYMPHOCYTES % (AUTO) 25.1 % (21-51); MEAN CORPUSCULAR HEMOGLOBIN 29.2 PG (27.0-31.0); MEAN CORPUSCULAR VOLUME 88.4 FL (78-98); MEAN PLATELET VOLUME 9.9 FL (7.4-10.4); MONOCYTES # (AUTO) 0.6 X10'3 (0-0.9); MONOCYTES % (AUTO) 8.1 % (2-12); NEUTROPHILS # (AUTO) 4.6 X10'3 (1.8-7.7); NEUTROPHILS % (AUTO) 61.5 % (42-75); PLATELET COUNT 153 X10'3 (140-440); RED BLOOD COUNT 4.69 X10'6 (4.70-6.10); RED CELL DISTRIBUTION WIDTH 15.3 % (11.5-14.5); WHITE BLOOD COUNT 7.5 X10'3 (4.5-11.0)
[2020-04-22 07:44] LABS: ALBUMIN 3.1 G/DL (3.4-5.0); ANION GAP 7 (8-16); BLOOD UREA NITROGEN 16 MG/DL (7-18); BUN/CREATININE RATIO 16.8 (5.4-32.0); CALCIUM 8.1 MG/DL (8.5-10.1); CHLORIDE 110 MMOL/L (99-107); CREATININE 0.95 MG/DL (0.60-1.10); GLUCOSE 85 MG/DL (70-104); MAGNESIUM 1.9 MG/DL (1.5-2.4); SODIUM 144 MMOL/L (135-145); TOTAL CARBON DIOXIDE 26.7 MMOL/L (24-32); eGFR 81 ML/MIN
[2020-04-22] MEDS: K and/or MAG REPLACEMENT MC SCH ×2 (08:00→20:00)
[2020-04-22] MEDS: apixaban 5mg tablet PO SCH ×2 (08:29→21:17)
[2020-04-22] MEDS: docusate sod 100mg capsule PO SCH ×2 (08:29→21:17)
[2020-04-22] MEDS: normal saline 1000ml 1,000 ML IV SCH (08:53)
[2020-04-22 10:00] VITALS: BP 89/51
--- NOTE | 2020-04-22 11:48 | NUR ---
PAGER ID: [phone] MESSAGE: Marlene [phone] re Mr Duval in 4020a- he has been evaluated by mental health we are waiting for placement now. EKG says afib rate 88
[2020-04-22 14:45] VITALS: BP 90/55
[2020-04-22 18:00] VITALS: BP 94/61
--- NOTE | 2020-04-22 18:30 | NUR ---
Patient in room ORTHO 4020. I have received report from Marlene GIBBONS and had the opportunity to ask questions and assume patient care.
[2020-04-22] MEDS: atorvastatin 10mg tablet PO SCH (21:17)
[2020-04-22 22:00] VITALS: BP 88/55
[2020-04-22] MEDS: risperiDONE 0.5mg tablet PO SCH (22:15)
[2020-04-23 00:18] VITALS: BP 97/60
[2020-04-23] MEDS: diltiazem 30mg tablet PO SCH ×2 (03:15→09:15)
[2020-04-23] MEDS: normal saline 1000ml 1,000 ML IV SCH (03:24)
[2020-04-23 06:00] VITALS: BP 102/68
--- NOTE | 2020-04-23 06:26 | NUR ---
Problems reprioritized. Patient report given, questions answered & plan of care reviewed with Marlene GIBBONS.
[2020-04-23 06:36] LABS: BASOPHILS % (AUTO) 0.7 % (0-1); EOSINOPHILS # (AUTO) 0.4 X10'3 (0-0.9); EOSINOPHILS % (AUTO) 5.3 % (0-6); HEMATOCRIT 42.3 % (42.0-52.0); LYMPHOCYTES % (AUTO) 28.5 % (21-51); MEAN CORPUSCULAR HEMOGLOBIN 29.3 PG (27.0-31.0); MEAN CORPUSCULAR HGB CONC 33.1 g/dL (33.0-36.5); MEAN CORPUSCULAR VOLUME 88.6 FL (78-98); MEAN PLATELET VOLUME 9.4 FL (7.4-10.4); MONOCYTES # (AUTO) 0.5 X10'3 (0-0.9); MONOCYTES % (AUTO) 7.5 % (2-12); PLATELET COUNT 161 X10'3 (140-440); RED BLOOD COUNT 4.77 X10'6 (4.70-6.10); RED CELL DISTRIBUTION WIDTH 15.1 % (11.5-14.5)
[2020-04-23 06:55] LABS: ALBUMIN 3.2 G/DL (3.4-5.0); ANION GAP 6 (8-16); BLOOD UREA NITROGEN 17 MG/DL (7-18); BUN/CREATININE RATIO 19.8 (5.4-32.0); CALCIUM 8.5 MG/DL (8.5-10.1); CHLORIDE 109 MMOL/L (99-107); CREATININE 0.86 MG/DL (0.60-1.10); GLUCOSE 81 MG/DL (70-104); MAGNESIUM 2.1 MG/DL (1.5-2.4); POTASSIUM 3.9 MMOL/L (3.5-5.1); SODIUM 142 MMOL/L (135-145); TOTAL CARBON DIOXIDE 26.7 MMOL/L (24-32); eGFR > 90 ML/MIN
[2020-04-23 07:30] VITALS: BP 97/61
[2020-04-23] MEDS: docusate sod 100mg capsule PO SCH (07:37)
[2020-04-23] MEDS: apixaban 5mg tablet PO SCH (07:37)
[2020-04-23] MEDS: K and/or MAG REPLACEMENT MC SCH (08:00)
--- NOTE | 2020-04-23 09:05 | NUR ---
pt has been pleasant and not violent this am. He is a/o x 4, answers direct questions (date, situation, place, etc) and follows commands appropriately, however he makes bizarre statements about family members going to "hell" or makes references to the Bible frequently. He has not made any violent statements or eluded to violent thoughts. He appears calm, amicable, and agreeable.
[2020-04-23 10:19] VITALS: BP 104/59
--- NOTE | 2020-04-23 11:30 | NUR ---
spoke to Katherine with [facility], [facility] has accepted pt and will likely pick him up by 3.
--- NOTE | 2020-04-23 11:31 | NUR ---
PAGER ID: [phone] MESSAGE: Marlene [phone] re Mr Mason in 5779a- he has been accepted to [facility]. Need dc order. Also, please address the Cardizem dose before he goes. Thank you
[2020-04-23] MEDS ORDERED: RISP0.5T3 PO (12:20)
[2020-04-23] MEDS ORDERED: DILT30TA5 PO (12:20)
[2020-04-23] MEDS ORDERED: APIX5TAB3 PO ×2 (12:20→17:12)
[2020-04-23] MEDS ORDERED: CARSR60C PO (17:12)
[2020-04-23] MEDS ORDERED: RISP1TAB13 PO (17:12)
[2020-04-23] MEDS ORDERED: DILT30TA10 PO (17:47)
== END 2020-04-23 13:25 | DRG 201 ==
LOC: ER 04:06 → ED HOLD 06:08 → UNDOADMOB 06:48 → ED HOLD 06:48 → INTOOBSV 08:55 → OBSVTOIN 08:55 → PCU 3S 09:05 → ED HOLD 09:05 → PCU 3S 11:37 → ORTHO 4S 04-21 16:59
PROVIDERS: ADMIT Internal Medicine; ATTEND Internal Medicine
DX: I48.91 Unspecified atrial fibrillation (principal); N17.9 Acute kidney failure, unspecified; I11.0 Hypertensive heart disease with heart failure; F20.9 Schizophrenia, unspecified; I50.9 Heart failure, unspecified; R07.89 Other chest pain; E78.00 Pure hypercholesterolemia, unspecified; E78.5 Hyperlipidemia, unspecified; Z66 Do not resuscitate; F15.90 Other stimulant use, unspecified, uncomplicated; M19.90 Unspecified osteoarthritis, unspecified site; Z59.0 Homelessness; Z79.899 Other long term (current) drug therapy
CPT/HCPCS: 36415; 71045; 80048; 80053; 80061; 80162; 80305; 80320; 81001; 83735; 83880; 84484; 85025; 85610; 85730; 87081; 93005; 99285; G0378; J1160; J3490; J7030